=== PATIENT | female | born 1990 | race Caucasian/White ===

== ENCOUNTER 2017-11-06 10:00 | Outpatient (CLI) | payer BC ==
[~2017-11-06 10:00] MED LIST: HYDR-3964 PO; NO HOME MEDS
== END 2017-11-06 23:59 | disposition home or self-care (01) ==
LOC: LAB 10:00
PROVIDERS: ATTEND Family Medicine
DX: Z02.0 Encounter for examination for admission to educational institution (principal)
CPT/HCPCS: 36415; 86706

== ENCOUNTER 2021-09-04 17:27 | Emergency (ER) | payer BC, OTHER ==
[~2021-09-04] VITALS: Ht 180.3 cm; Wt 113.0 kg
[2021-09-04 19:28] LABS: ALANINE AMINOTRANSFERASE 22 U/L (12-78); ALBUMIN 3.9 G/DL (3.4-5.0); ALBUMIN/GLOBULIN RATIO 1.1 (1.1-1.5); ALKALINE PHOSPHATASE 99 IU/L (46-116); ANION GAP 11 (8-16); ASPARTATE AMINO TRANSFERASE 13 U/L (10-37); BILIRUBIN,TOTAL 0.5 MG/DL (0.1-1.0); BLOOD UREA NITROGEN 13 MG/DL (7-18); BUN/CREATININE RATIO 16.7 (6.6-38.0); CHLORIDE 103 MMOL/L (99-107); CREATININE 0.78 MG/DL (0.40-0.90); GLUCOSE 100 MG/DL (70-104); LIPASE 114 U/L (73-393); MEAN CORPUSCULAR HGB CONC 34.3 g/dL (33.0-36.5); POTASSIUM 3.7 MMOL/L (3.5-5.1); SODIUM 140 MMOL/L (135-145); TOTAL CARBON DIOXIDE 26.4 MMOL/L (24-32); TOTAL PROTEIN 7.6 G/DL (6.4-8.2); eGFR 87 ML/MIN
[2021-09-04 19:31] LABS: BASOPHILS # (AUTO) 0.1 X10'3 (0-0.2); BASOPHILS % (AUTO) 0.6 % (0-1); EOSINOPHILS # (AUTO) 0.4 X10'3 (0-0.9); EOSINOPHILS % (AUTO) 2.7 % (0-6); HEMATOCRIT 38.5 % (35.0-45.0); HEMOGLOBIN 13.2 g/dl (12.0-16.0); LYMPHOCYTES # (AUTO) 3.4 X10'3 (1.1-4.8); LYMPHOCYTES % (AUTO) 25.2 % (21-51); MEAN CORPUSCULAR HEMOGLOBIN 31.1 PG (27.0-31.0); MEAN CORPUSCULAR VOLUME 90.5 FL (78-98); MEAN PLATELET VOLUME 7.7 FL (7.4-10.4); MONOCYTES % (AUTO) 7.4 % (2-12); NEUTROPHILS # (AUTO) 8.7 X10'3 (1.8-7.7); NEUTROPHILS % (AUTO) 64.1 % (42-75); PLATELET COUNT 384 X10'3 (140-440); RED BLOOD COUNT 4.26 X10'6 (4.20-5.60); WHITE BLOOD COUNT 13.6 X10'3 (4.5-11.0)
[2021-09-04 19:32] LABS: URINE HCG NEGATIVE (NEG)
[2021-09-04 19:43] LABS: CLARITY,URINE CLEAR (Clear); COLOR,URINE YELLOW (Yellow); UA COLLECTION TYPE CLN CATCH MIDSTREAM
[2021-09-04 19:44] LABS: GLUCOSE, URINE NEGATIVE (Neg); KETONES,URINE NEGATIVE (Neg); LEUKOCYTE ESTERASE ,URINE NEGATIVE (Neg); NITRITES, URINE NEGATIVE (Neg); OCCULT BLOOD,URINE NEGATIVE (Neg); PH,URINE 7.5 (4.8-8.0); PROTEIN,URINE NEGATIVE (Neg); UROBILINOGEN,URINE 0.2 E.U/dL (0.2-1.0)
[2021-09-05] MEDS ORDERED: naproxen 500mg tablet PO ONE (00:35)
[2021-09-05] MEDS ORDERED: ondansetron 4mg/5ml UD cup PO ONE (00:35)
[2021-09-05] MEDS ORDERED: ondansetron 4mg rapidly disintigrating tab PO ONE (00:40)
[2021-09-05 01:19] VITALS: BP 133/96
[2021-09-05] MEDS ORDERED: NAPR-56 PO (02:18)
[2021-09-06] MEDS ORDERED: HYDR-3965 PO (07:04)
== END 2021-09-05 02:29 | disposition home or self-care (01) ==
LOC: ER 17:28
DX: N83.201 Unspecified ovarian cyst, right side (principal); R10.31 Right lower quadrant pain; R11.0 Nausea; Z90.89 Acquired absence of other organs; Z79.899 Other long term (current) drug therapy
CPT/HCPCS: 36415; 76700; 76830; 80053; 81003; 81025; 83690; 85025; 93976; 99285

== ENCOUNTER 2021-09-06 05:17 | Emergency (ER) | payer OTHER ==
[~2021-09-06] VITALS: Ht 152.4 cm; Wt 120.0 kg
[~2021-09-06 05:17] MED LIST changes: +NAPR-56 PO
[2021-09-06] MEDS ORDERED: HYDR-3965 PO (07:04)
--- NOTE | 2021-09-06 07:14 | NUR ---
BACK FORM CT
[2021-09-06 07:15] VITALS: BP 162/109
== END 2021-09-06 08:57 | disposition home or self-care (01) ==
LOC: ER 05:18
DX: N83.201 Unspecified ovarian cyst, right side (principal); R10.31 Right lower quadrant pain; R10.2 Pelvic and perineal pain; Z90.89 Acquired absence of other organs; Z79.899 Other long term (current) drug therapy
CPT/HCPCS: 74176; 76830; 76856; 99285